=== PATIENT | female | born 1960 | race Caucasian/White ===

== ENCOUNTER 2017-09-02 19:30 | Emergency (ER) | payer BC ==
[2017-09-02 20:06] VITALS: BP 151/68
--- NOTE | 2017-09-02 20:24 | UC ---
Skin Complaint HPI - HPI Summary HPI Summary: The patient is a 51-year-old female with an expanding Jourdan rash her right lateral chest 2 days. She has been having some malaise. She has no memory of her recent tick bite. He recalls no insect bite or sting. - History of Current Complaint Chief Complaint: UCSkin Time Seen by Provider: 09/02/17 19:54 Stated Complaint: BUG BITE UNDER ARM Hx Obtained From: Patient Onset/Duration: Gradual Onset, Lasting Days Timing: Constant Onset Severity: Mild Current Severity: Moderate Pain Intensity: 0 Pain Scale Used: 0-10 Numeric Location: Discrete Character: Redness, Raised - sl Aggravating Factor(s): Nothing Alleviating Factor(s): Nothing - Allergy/Home Medications Allergies/Adverse Reactions: Allergies Allergy/AdvReac Type Severity Reaction Status Date / Time codeine AdvReac Headache Verified 09/02/17 20:08 Penicillins AdvReac Headache Verified 09/02/17 20:08 Review of Systems Constitutional: Fatigue Skin: Negative Eyes: Negative ENT: Negative Respiratory: Negative Cardiovascular: Negative Gastrointestinal: Negative Genitourinary: Negative Motor: Negative Neurovascular: Negative Musculoskeletal: Myalgia - mild Neurological: Negative Psychological: Negative Is Patient Immunocompromised?: No All Other Systems Reviewed And Are Negative: Yes PMH/Surg Hx/FS Hx/Imm Hx Previously Healthy: Yes Cardiovascular History: Hypertension - Surgical History Surgical History: Yes Surgery Procedure, Year, and Place: HYSTERECTOMY-2005. Pins in left foot/2nd toe 2004 - Social History Alcohol Use: Weekly Substance Use Type: None Smoking Status (MU): Never Smoked Tobacco Physical Exam Triage Information Reviewed: Yes Appearance: Well-Appearing, No Pain Distress, Well-Nourished Vital Signs: Initial Vital Signs Temp 99.8 F 09/02/17 20:00 Pulse 86 09/02/17 20:00 Resp 16 09/02/17 20:00 BP 151/68 09/02/17 20:00 Pulse Ox 97 09/02/17 20:00 Vital Signs Reviewed: Yes Eyes: Positive: Conjunctiva Clear ENT: Positive: Normal ENT inspection, Hearing grossly normal Neck: Positive: Supple, Nontender, No Lymphadenopathy Respiratory: Positive: Lungs clear, Normal breath sounds, No respiratory distress, No accessory muscle use Cardiovascular: Positive: RRR, No Murmur Musculoskeletal: Positive: ROM Intact, No Edema Neurological: Positive: Muscle Tone Normal Psychological Exam: Normal Skin Exam: Other - 9x10 cm bullseye rash c/w erythema migrans Course/Dx - Diagnoses Provider Diagnoses: Lyme disease. erythema migrans Discharge - Sign-Out/Discharge Documenting (check all that apply): Discharge/Admit/Transfer - Discharge Plan Condition: Stable Disposition: HOME Prescriptions: DOXYcycline CAP(*) [DOXYcycline 100MG CAP(*)] 100 mg PO BID #28 cap Patient Education Materials: Lyme Disease (ED) Print Language: INDONESIAN Referrals: Tanya Potts MD [Primary Care Provider] - 1 Week (recheck in 1-2 weeks) - Billing Disposition and Condition Condition: STABLE Disposition: Home
== END 2017-09-02 20:25 | disposition home or self-care (01) ==
LOC: UCEAST 19:30
DX: A69.20 Lyme disease, unspecified (principal); L53.8 Other specified erythematous conditions; I10 Essential (primary) hypertension; Z88.0 Allergy status to penicillin; Z88.5 Allergy status to narcotic agent
CPT/HCPCS: 99212; G0463